=== PATIENT | male | born 1995 | race Caucasian/White ===

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

== ENCOUNTER 2018-09-06 11:37 | Emergency (ER) | payer SELFPAY ==
[2018-09-06] MEDS ORDERED: Azithromycin 250 MG TAB ONE (13:25)
[2018-09-06] MEDS ORDERED: Dexamethasone 4 MG TAB ONE (13:25)
[2018-09-06] MEDS ORDERED: HYDROcodone/Acetaminophen 5/325 mg Tablet ONE (13:25)
[2018-09-06] MEDS ORDERED: Amoxicillin/Potassium Clav 875 MG TAB ONE (13:25)
--- NOTE | 2018-09-06 14:30 | RAD ---
TWO VIEWS CHEST: DATE: 09/06/2018. PROVIDED CLINICAL HISTORY: Chest pain. FINDINGS: Cardiac and mediastinal silhouette are within normal limits. Lingular airspace disease is noted comp atible with pneumonia in the appropriate clinical context. The lungs appear otherwise clear. No ple ural fluid or pneumothorax apparent. IMPRESSION: Lingular consolidation, compatible with pneumonia in the appropriate clinical context. POS: [facility]
== END 2018-09-06 13:40 | disposition home or self-care (01) ==
LOC: MADERS 11:37
DX: J18.9 Pneumonia, unspecified organism (principal)
CPT/HCPCS: 71046; J8540

== ENCOUNTER 2018-12-05 11:12 | Emergency (ER) | payer SELFPAY ==
[2018-12-05] MEDS ORDERED: Adacel (T-DAP) 0.5 ML SYRINGE ONE (11:49)
== END 2018-12-05 12:05 | disposition home or self-care (01) ==
LOC: MADERS 11:12
DX: L03.116 Cellulitis of left lower limb (principal)
CPT/HCPCS: 90471; 90715

== ENCOUNTER 2024-01-14 17:48 | Emergency (ER) | payer SELFPAY ==
[2024-01-14] MEDS ORDERED: Acetaminophen 500 MG TAB ONE (18:44)
== END 2024-01-14 20:48 | disposition home or self-care (01) ==
LOC: MADERS 17:48
DX: S82.831A Other fracture of upper and lower end of right fibula, initial encounter for closed fracture (principal); M25.471 Effusion, right ankle; W19.XXXA Unspecified fall, initial encounter